=== PATIENT | female | born 1955 | race Caucasian/White ===

== ENCOUNTER 2016-11-26 08:42 | Day surgery (SDC) | payer BC ==
[2016-11-26] MEDS ORDERED: diphenhydrAMINE 25 MG CAP PO ONE (08:44)
[2016-11-26] MEDS ORDERED: ASPIRIN EC 325 MG TAB PO ONE (08:44)
[2016-11-26] MEDS ORDERED: DIAZEPAM 5 MG TAB PO ONE (08:44)
[2016-11-26] MEDS ORDERED: FAMOTIDINE 20 MG TAB PO ONE (08:44)
[2016-11-26] MEDS ORDERED: NS 1,000 ML IV ONE (08:44)
--- NOTE | 2016-11-26 09:04 | CPEKG ---
Heart Rate: 86 RR Interval: 698 P-R Interval: 156 QRSD Interval: 156 QT Interval: 432 QTC Interval: 517 P [place]: 41 QRS [place]: -16 T Wave [place]: 34 EKG Severity - ABNORMAL ECG - EKG Impression: SINUS RHYTHM EKG Impression: LEFT BUNDLE BRANCH BLOCK EKG Impression: Agree with above Electronically Signed By: Bravo Nieto 26-Nov-2016 16:07:22
[2016-11-26 10:05] LABS: ADD DIFF? YES; ADD MORPH? NO; ATYPICAL LYMPHOCYTE FLAG 0 (0-99); FRAGMENT RBC FLAG 0 (0-99); HEMATOCRIT 31.5 % (38.0-47.0); HEMOGLOBIN 10.7 g/dL (12.6-16.3); LIPEMIA HEMOLYSIS FLAG 90 (0-99); MEAN CELL HEMOGLOBIN 31.4 pg (27.9-34.1); MEAN CELL VOLUME 92.4 fL (81.5-99.8); MEAN PLATELET VOLUME 9.5 fL (8.7-11.7); PLATELET CLUMPS FLAG 0 (0-99); PLATELET COUNT 178 10^3/uL (150-400); RED BLOOD CELL COUNT 3.41 10^6/uL (4.18-5.33); RED CELL DISTRIBUTION WIDTH 17.1 % (11.5-15.2)
[2016-11-26 10:07] LABS: ADD SCAN? NO; LEFT SHIFT FLG 300 (0-99)
[2016-11-26 10:14] LABS: INR 1.03 (0.83-1.16); PROTIME(PATIENT) 13.4 SEC (12.0-15.0)
[2016-11-26 10:24] LABS: ANION GAP 9 mEq/L (8-16); CALCIUM 8.8 mg/dL (8.5-10.4); CARBON DIOXIDE 27 mEq/l (22-31); CHLORIDE 104 mEq/L (97-110); CHOLESTEROL 147 mg/dL (140-220); CHOLESTEROL/HDL RATIO 3.87 RATIO (1.00-4.44); CREATININE 0.8 mg/dL (0.6-1.0); GLOMERULAR FILTRATION RATE > 60; GLUCOSE 93 mg/dL (70-100); HIGH DENSITY LIPOPROTEIN 38 mg/dL (40-85); LOW DENSITY LIPOPROTEIN 95 mg/dL (80-100); MAGNESIUM 1.5 mg/dL (1.6-2.3); NON-HIGH DENSITY LIPOPROTEIN 109 mg/dL (90-129); POTASSIUM 3.6 mEq/L (3.5-5.2); SODIUM 140 mEq/L (134-144); TRIGLYCERIDE 74 mg/dL (35-135); VERY LOW DENSITY LIPOPROTEINS 14 mg/dL (8-25)
[2016-11-26] MEDS ORDERED: MAGNESIUM SULF 1 GM/DEXTROSE 100 ML BAG IV ONE (10:29)
[2016-11-26] MEDS ORDERED: IOPAMIDOL (ISOVUE-370) 150 ML BTL IV ONE (10:47)
[2016-11-26] MEDS ORDERED: MIDAZOLAM 2 MG/2 ML VIAL ONE (10:47)
[2016-11-26] MEDS ORDERED: LIDOCAINE 1% 300 MG/30 ML SDV ONE (10:47)
[2016-11-26] MEDS ORDERED: fentaNYL 100 MCG/2 ML INJ ONE (10:47)
[2016-11-26 11:02] LABS: PLATELET ESTIMATE ADEQUATE (ADEQ); POLYCHROMASIA 1+
--- NOTE | 2016-11-26 21:03 | CPIP ---
[f rep st] INVASIVE CARDIAC PROCEDURE DATE OF PROCEDURE: 11/26/2016 PROCEDURES: 1. Left heart catheterization. 2. Coronary angiography. 3. Left ventriculography. INDICATION: Left bundle branch block and abnormal nuclear stress test concerning for obstructive co ronary disease. COMPLICATIONS: None apparent. DESCRIPTION OF PROCEDURE: N.p.o. status was confirmed, informed consent obtained, and timeout perfo rmed. The patient was brought to the catheterization laboratory and prepped and draped in sterile f ashion. Adequate conscious sedation was achieved with Versed and fentanyl IV. 1% lidocaine was use d for local anesthesia to the right groin. Using modified Seldinger technique, a 6-Russian introduce r sheath was placed in the right common femoral artery. JL4, JR4, and pigtail catheter were used fo r coronary angiography and left ventriculography respectively. FINDINGS: 1. Left main is short and bifurcates into the LAD and left circumflex system. With initial injecti on, there was significant spasm of the proximal LAD causing sluggish flow and dye hang up. There wa s no dissection flap. With subsequent injections, flow normalized to KENISHA-3 flow and spasm resolved . There is no significant left main disease. 2. The LAD reaches the apex and has 1 principal diagonal artery. There is no coronary disease in t he system. There is spasm as detailed above. 3. Left circumflex is dominant. There is 1 large branching obtuse marginal vessel. 4. The right coronary artery is diminutive. There is no significant disease in the left circumflex or its branches. 5. The right coronary artery is diminutive. There is no significant coronary disease. 6. The left ventricular ejection fraction is low normal at 50%. No regional wall motion abnormalit ies. No mitral regurgitation. Visualized portions of the ascending and descending aorta appear nor mal. HEMODYNAMICS: Aortic pressure is 125/61. LV pressure is 115/7 with end-diastolic pressure of 14. There is no aortic stenosis. CONCLUSIONS: 1. No coronary disease in this left dominant system. 2. Spasm of the proximal LAD that is likely related to catheter manipulation, and unlikely to be cl inically significant. However, if the patient does develop chest pain syndrome, consider nitroglyce rin and/or calcium channel blockers for treatment. 3. Low normal ejection fraction that was previously known. Normal left heart pressures. 4. Patient's right femoral arteriotomy site was sealed with an Angio-Seal device. She was taken to [facility] in stable condition. Results discussed with the patient and her . She will be discharg ed home later today. /[id number]/MODL
== END 2016-11-26 16:17 | disposition home or self-care (01) ==
LOC: FCATH 08:42
PROVIDERS: ATTEND Internal Medicine Cardiovascular Disease
DX: I44.7 Left bundle-branch block, unspecified (principal); R94.31 Abnormal electrocardiogram [ECG] [EKG]; C50.919 Malignant neoplasm of unspecified site of unspecified female breast
CPT/HCPCS: C1760; J1642; J1644; J2250; J3010; J3475; Q9967